=== PATIENT | female | born 1955 | race Caucasian/White ===

== ENCOUNTER → 2018-09-05 | Outpatient (CLI) | payer BC, MEDICAID, OTHER | END | disposition home or self-care (01) | LOC: CFH 12:16 | PROVIDERS: ATTEND Family Medicine | DX: Z12.31 Encounter for screening mammogram for malignant neoplasm of breast (principal); N64.89 Other specified disorders of breast | CPT/HCPCS: 76641; 77067 ==

== ENCOUNTER 2018-11-07 07:05 | Outpatient (CLI) | payer MEDICAID | END 2018-11-07 23:59 | disposition home or self-care (01) | LOC: CFH 07:05 | PROVIDERS: ATTEND Family Medicine | DX: R19.7 Diarrhea, unspecified (principal); D17.71 Benign lipomatous neoplasm of kidney | CPT/HCPCS: 76700 ==

== ENCOUNTER → 2020-10-06 | Outpatient (CLI) | payer MEDICARE, MEDICAID | END | disposition home or self-care (01) | LOC: CFH 10:24 | PROVIDERS: ATTEND Student in an Organized Health Care Education/Training Program | DX: Z12.31 Encounter for screening mammogram for malignant neoplasm of breast (principal) | CPT/HCPCS: 77063; 77067 ==